=== PATIENT | male | born 1960 | race Caucasian/White ===

== ENCOUNTER → 2016-07-11 | Outpatient (CLI) | payer OTHER ==
--- NOTE | 2016-07-11 12:54 | CR ---
EXAMINATION: Left shoulder HISTORY: Pain COMPARISON: None TECHNIQUE: 3 views FINDINGS/IMPRESSION: There is no acute osseous abnormality, dislocation, or fracture identified. Bon e mineralization appears normal. Possible mild joint space narrowing within the glenohumeral joint.
--- NOTE | 2016-07-11 13:20 | CR ---
EXAMINATION: Pelvis and right hip HISTORY: Pain COMPARISON: MRI dated 01/24/2016 TECHNIQUE: AP pelvis and 2 views of the right hip FINDINGS: There is no acute osseous abnormality, dislocation, or fracture identified. Bone mineraliz ation and joint spaces appear normal. The iliopectineal lines are intact. The SI joints are symmetri c. IMPRESSION: Grossly unremarkable pelvis and right hip.
== END ==
LOC: MW.CHORTHO 07:57
PROVIDERS: ATTEND Orthopaedic Surgery
DX: M25.511 Pain in right shoulder (principal); M25.512 Pain in left shoulder; M25.551 Pain in right hip
CPT/HCPCS: 73030-26-LT; 73030-LT; 73502-26-RT; 73502-RT